=== PATIENT | female | born 1990 | race Caucasian/White ===

== ENCOUNTER 2021-10-02 16:12 | Emergency (ER) | payer OTHER ==
[~2021-10-02 16:12] MED LIST: FLEXERIL10 MG PO; IBUPROFEN800 MG PO; KLONOPIN0.5 MG PO; LATUDA20 MG PO; PERCOCET 5-3251 EACH PO
[2021-10-02 17:38] LABS: BASOPHIL 0.5 % (0-2); EOSINOPHIL 1.7 % (0-5); HCT 41.9 % (37.0-47.0); HGB 14.1 g/dl (12.5-16.0); LYMPHOCYTE 32.7 % (15-48); MCHC 33.7 g/dL (32.0-36.0); MCV 95.2 fL (78.0-100.0); MONOCYTE 8.7 % (0-12); MPV 10.6 fL (6.0-9.5); NEUTROPHIL 56.2 % (41-80); NRBC 0; PLT 252 K/uL (150-400); RDW 12.1 % (11.5-14.0); WBC 8.3 K/uL (4.0-10.5)
[2021-10-02 17:41] LABS: BILIRUBIN NEGATIVE (NEGATIVE); BLOOD TRACE-INTACT Ery/uL (NEGATIVE); CLARITY CLEAR (CLEAR); COLOR YELLOW (YELLOW); GLUCOSE (U) NORMAL (NORMAL); LEUKOCYTES NEGATIVE Leu/uL (NEGATIVE); NITRITE NEGATIVE (NEGATIVE); PROTEIN NEGATIVE (NEGATIVE); SPECIFIC GRAVITY 1.025 (1.001-1.030); UROBILINOGEN 0.2 mg/dL (0.2-1.0)
[2021-10-02 17:52] LABS: BACTERIA TRACE; URINARY RBC RARE; URINARY WBC RARE
[2021-10-02 17:53] LABS: MUCOUS TRACE
[2021-10-02 17:58] LABS: ALBUMIN 3.7 g/dL (3.4-5.0); BILIRUBIN - TOTAL 0.2 mg/dL (0.2-1.0); BUN/CREAT RATIO (CALC) 10.1 RATIO; CREATININE 0.99 mg/dL (0.51-0.95); POTASSIUM 4.4 mmol/L (3.5-5.1); TOTAL PROTEIN 7.7 g/dL (6.4-8.2)
[2021-10-06 05:06] LABS: CHLAMYDIA TRACHOMATIS, NAA Negative (Negative); NEISSERIA GONORRHOEAE, NAA Negative (Negative)
== END 2021-10-02 21:30 | disposition home or self-care (01) ==
LOC: FER 16:12
PROVIDERS: Emergency Medicine; Nurse Practitioner Family
DX: R10.84 Generalized abdominal pain (principal); F17.210 Nicotine dependence, cigarettes, uncomplicated; Z88.2 Allergy status to sulfonamides; Z88.8 Allergy status to other drugs, medicaments and biological substances
CPT/HCPCS: 36415; 80053; 81001; 82150; 83690; 85025; 87491; 87591; 96372; J0696; J1885; J2405; J7030

== ENCOUNTER 2022-01-27 09:12 | Emergency (ER) | payer OTHER ==
[2022-01-27] MEDS ORDERED: NORCO 5-325 TA1 EACH PO (10:15)
== END 2022-01-27 10:33 | disposition home or self-care (01) ==
LOC: FER 09:12
DX: M79.672 Pain in left foot (principal); F17.210 Nicotine dependence, cigarettes, uncomplicated; Z88.2 Allergy status to sulfonamides; Z88.8 Allergy status to other drugs, medicaments and biological substances; Z28.311 Partially vaccinated for COVID-19
CPT/HCPCS: 73630

== ENCOUNTER 2022-05-25 16:18 | Emergency (ER) | payer OTHER ==
[~2022-05-25 16:18] MED LIST changes: +NORCO 5-325 TA1 EACH PO
[2022-05-25 17:31] LABS: BASOPHIL 0.3 % (0-2); HGB 16.7 g/dl (12.5-16.0); LYMPHOCYTE 23.3 % (15-48); MCH 31.5 pg (25.0-31.0); MCHC 34.1 g/dL (32.0-36.0); MCV 92.3 fL (78.0-100.0); MONOCYTE 5.9 % (0-12); MPV 10.6 fL (6.0-9.5); NEUTROPHIL 69.3 % (41-80); NRBC 0; PLT 279 K/uL (150-400); RBC 5.31 M/uL (4.20-5.40); RDW 12.7 % (11.5-14.0); WBC 12.8 K/uL (4.0-10.5)
[2022-05-25 17:51] LABS: ALBUMIN 3.9 g/dL (3.4-5.0); ALKALINE PHOSHATASE 102 U/L (46-116); ALT 46 U/L (14-59); AST 27 U/L (15-37); BILIRUBIN - TOTAL 0.3 mg/dL (0.2-1.0); BUN 10 mg/dL (7-18); BUN/CREAT RATIO (CALC) 11.4 RATIO; CHLORIDE 104 mmol/L (98-107); CO2 (BICARBONATE) 22 mmol/L (21-32); CREATININE 0.88 mg/dL (0.51-0.95); GLOBULIN (CALCULATION) 4.6 g/dL; GLUCOSE 111 mg/dL (74-106); POTASSIUM 4.5 mmol/L (3.5-5.1); TOTAL PROTEIN 8.5 g/dL (6.4-8.2)
[2022-05-25 17:54] LABS: ACETAMINOPHEN (TYLENOL) < 2.0 ug/mL (10.0-30.0)
[2022-05-25 18:01] LABS: CORONAVIRUS 2019 SARS-COV-2 NEGATIVE (NEGATIVE); INFLUENZA A NAA NEGATIVE (NEGATIVE)
[2022-05-25 18:29] LABS: BILIRUBIN NEGATIVE (NEGATIVE); BLOOD NEGATIVE Ery/uL (NEGATIVE); CLARITY CLEAR (CLEAR); COLOR YELLOW (YELLOW); GLUCOSE (U) NORMAL (NORMAL); LEUKOCYTES TRACE Leu/uL (NEGATIVE); NITRITE NEGATIVE (NEGATIVE); PROTEIN 1+ mg/dL (NEGATIVE); UROBILINOGEN 0.2 mg/dL (0.2-1.0)
[2022-05-25 18:32] LABS: AMPHETAMINES POSITIVE (NEGATIVE); BARBITURATES NEGATIVE (NEGATIVE); ECSTASY (MDMA) NEGATIVE (NEGATIVE); MARIJUANA (THC) POSITIVE (NEGATIVE); METHADONE NEGATIVE (NEGATIVE); OPIATES POSITIVE (NEGATIVE); OXYCODONE NEGATIVE (NEGATIVE)
[2022-05-25 18:33] LABS: HCG (URINE) SCREEN NEGATIVE (NEGATIVE)
[2022-05-25 18:35] LABS: BACTERIA 1+; URINARY RBC RARE
== END 2022-05-26 00:15 | disposition home or self-care (01) ==
LOC: FER 16:18
PROVIDERS: Physician Assistant
DX: F41.9 Anxiety disorder, unspecified (principal); F32.A Depression, unspecified; F11.10 Opioid abuse, uncomplicated; F17.210 Nicotine dependence, cigarettes, uncomplicated; Z88.2 Allergy status to sulfonamides; Z88.8 Allergy status to other drugs, medicaments and biological substances; Z20.822 Contact with and (suspected) exposure to COVID-19
CPT/HCPCS: 36415; 71045; 80053; 80305; 81001; 84484; 84703; 85025; 93005; G0480; U0002